=== PATIENT | male | born 1995 | race Caucasian/White ===

== ENCOUNTER 2021-01-16 13:58 | Emergency (ER) | payer OTHER ==
[~2021-01-16] VITALS: Ht 185.4 cm; Wt 77.1 kg
[2021-01-16 14:41] LABS: ABSOLUTE BASOPHILS 0.1 thou/uL (0.0-0.2); ABSOLUTE EOSINOPHILS 0.1 thou/uL (0.0-0.7); ABSOLUTE LYMPHOCYTES 3.5 thou/uL (0.8-5.3); ABSOLUTE MONOCYTES 0.7 thou/uL (0.0-1.2); ABSOLUTE NEUTROPHILS 4.1 thou/uL (1.6-8.1); BASOPHILS 0.8 %; EOSINOPHILS 0.9 %; HEMOGLOBIN 14.6 gm/dL (14.0-18.0); LYMPHOCYTES 41.1 %; MCH 30.2 pg (26.0-34.0); MCV 88.9 fL (80.0-100.0); MONOCYTES 7.8 %; NUCLEATED RBCS 0 /100WBC; PLATELET COUNT* 248 thou/uL (150-400); POLYS 49.4 %; RBC 4.84 mil/uL (4.50-6.00); RDW-CV 13.4 % (10.5-14.5); WBC 8.4 thou/uL (4.0-11.0)
[2021-01-16 14:54] LABS: CALCIUM 8.8 mg/dL (8.5-10.1); CREATININE 0.9 mg/dL (0.6-1.3); POTASSIUM 3.5 mmol/L (3.5-5.1)
[2021-01-16 14:59] LABS: ALBUMIN 4.2 g/dL (3.4-5.0); MAGNESIUM 2.2 mg/dL (1.8-2.4); TOTAL BILIRUBIN 0.2 mg/dL (<0.1-1.0); TOTAL PROTEIN 7.4 g/dL (6.4-8.2)
[2021-01-16] MEDS ORDERED: IBUPROFEN 800800 M1 PO (15:06)
[2021-01-16] MEDS ORDERED: ZANAFLEX4 MG PO (15:06)
[2021-01-16] MEDS ORDERED: LEXAPRO 10 MG T10 M1 PO ×2 (15:49→15:56)
[2021-01-16] MEDS ORDERED: RISPERDAL 1 MG T1 MG PO ×2 (15:49→15:55)
--- NOTE | 2021-01-16 15:50 | EKG ---
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: [facility] : 1995 Requested By: Mckenzie Vo Order Number: [id number] MD: Terrence Barnes Measurements Intervals [place] Rate: 60 P: 63 WI: 165 QRS: 66 QRSD: 87 T: 53 QT: 423 QTc: 423 Interpretive Statements Sinus rhythm LAE, consider biatrial enlargement ST elev, probable normal early repol pattern No previous ECG available for comparison Electronically Signed On 01-16-2021 15:50:43 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
[2021-01-16 15:57] VITALS: BP 128/82
== END 2021-01-16 15:58 | disposition home or self-care (01) ==
LOC: M.ERS 13:58
PROVIDERS: Nurse Practitioner Family
DX: R07.89 Other chest pain (principal); R20.2 Paresthesia of skin; F17.210 Nicotine dependence, cigarettes, uncomplicated